=== PATIENT | female | born 1940 | race Caucasian/White ===

== ENCOUNTER 2019-01-10 11:29 | Emergency (ER) | payer OTHER ==
[~2019-01-10] VITALS: Ht 162.6 cm; Wt 65.8 kg
[~2019-01-10 11:29] MED LIST: PREDNISONE20 MG PO
[2019-01-10] MEDS ORDERED: VYTORIN 10-401 EACH (11:44)
[2019-01-10] MEDS ORDERED: LOSARTAN-HCTZ1 EAC1 (11:44)
[2019-01-10] MEDS ORDERED: SKELAXIN800 MG PO (12:46)
[2019-01-10] MEDS ORDERED: CELEBREX100 MG PO (12:46)
== END 2019-01-10 13:20 | disposition home or self-care (01) ==
LOC: ER 11:29
DX: M54.2 Cervicalgia (principal); M62.838 Other muscle spasm

== ENCOUNTER 2022-12-11 03:05 | Emergency (ER) | payer OTHER ==
[~2022-12-11] VITALS: Ht 162.6 cm; Wt 68.0 kg
[~2022-12-11 03:05] MED LIST changes: +CELEBREX100 MG PO; +LOSARTAN-HCTZ1 EAC1; +SKELAXIN800 MG PO; +VYTORIN 10-401 EACH
[2022-12-11] MEDS ORDERED: ZOFRAN8 MG PO (11:25)
[2022-12-11] MEDS ORDERED: PEPCID AC20 MG PO (11:25)
== END 2022-12-11 11:56 | disposition home or self-care (01) ==
LOC: ER 03:05
PROVIDERS: General Practice
DX: K29.70 Gastritis, unspecified, without bleeding (principal); I10 Essential (primary) hypertension
CPT/HCPCS: 36415; 93005; 96365; 96366; 99284; J2405; J3490; J7030